=== PATIENT | female | born 1950 | race Caucasian/White ===

== ENCOUNTER 2024-12-28 04:03 | Inpatient (IN) | payer MEDICARE, BC ==
[~2024-12-28] VITALS: Ht 160 cm; Wt 78.0 kg
[2024-12-28 04:05] VITALS: BP 151/73; TEMP 97.7; O2SAT 96
[2024-12-28] MEDS ORDERED: MAGNESIUM HYDROXIDE 30 ML LIQUID UDC PO PRN (04:30)
[2024-12-28] MEDS ORDERED: LORAZEPAM 1 MG TABLET PO PRN (04:30)
[2024-12-28] MEDS ORDERED: TEMAZEPAM 7.5 MG CAPSULE PO PRN ×2 (04:30)
[2024-12-28] MEDS ORDERED: LISI20TA30 PO (06:00)
[2024-12-28] MEDS ORDERED: TRAZ-182 PO (06:00)
[2024-12-28] MEDS ORDERED: ESCI10TA PO (06:00)
[2024-12-28] MEDS ORDERED: ALBU5SOL7 IH (06:00)
[2024-12-28 08:24] VITALS: BP 121/58; TEMP 97.7; O2SAT 96
[2024-12-28] MEDS ORDERED: ALBUTEROL SULFATE 8 GM HFA.AER.AD IH PRN (14:30)
[2024-12-28] MEDS ORDERED: OLANZAPINE 10 MG VIAL IM ONE (15:00)
[2024-12-28 16:16] VITALS: BP 152/89; TEMP 97.7; O2SAT 96
[2024-12-28 20:11] VITALS: BP 163/81; TEMP 97.5; O2SAT 99
[2024-12-28] MEDS: AMOXICILLIN-CLAVUL 875-125MG TABLET PO SCH (20:19)
[2024-12-28] MEDS: LORAZEPAM 0.5 MG TABLET PO PRN (20:19)
[2024-12-29 08:08] VITALS: BP 123/78; TEMP 97.7; O2SAT 96
[2024-12-29 08:28] LABS: PLATELET COUNT (AUTO) 372 K/uL (179-408); RED BLOOD CELL COUNT(AUTO) 4.40 MIL/uL (3.63-4.92); RED CELL DISTRIBUTION WIDTH 17.3 % (12.3-17.7); WHITE BLOOD COUNT (AUTO) 7.2 K/uL (3.8-11.8)
[2024-12-29] MEDS ORDERED: LISINOPRIL 20 MG TABLET PO SCH (09:00)
[2024-12-29 16:18] VITALS: BP 164/77; TEMP 97.7; O2SAT 96
[2024-12-29] MEDS: DIVALPROEX 125 MG TABLET.DR PO SCH (16:21)
[2024-12-29 19:52] VITALS: BP 165/79; TEMP 98.1; O2SAT 98
[2024-12-29] MEDS: LISINOPRIL 20 MG TABLET PO SCH (20:49)
[2024-12-30 08:25] VITALS: BP 147/93; TEMP 97.7; O2SAT 96
[2024-12-30 16:23] VITALS: BP 143/77; TEMP 97.7; O2SAT 96
[2024-12-30 19:53] VITALS: BP 146/83; TEMP 98.4; O2SAT 97
[2024-12-31] MEDS: ACETAMINOPHEN 325 MG TABLET PO PRN (04:20)
[2024-12-31 09:09] VITALS: BP 156/80; TEMP 98; O2SAT 99
[2024-12-31] MEDS: OLANZAPINE 2.5 MG TABLET PO SCH (12:23)
[2024-12-31 16:20] VITALS: BP 167/85; TEMP 98.4; O2SAT 96
[2024-12-31] MEDS: OLANZAPINE 10 MG VIAL IM ONE (19:14)
[2024-12-31 19:58] VITALS: BP 183/103; TEMP 98.1; O2SAT 96
[2025-01-01] MEDS: MAG HYDROX/AL HYDROX/SIMETH 30 ML LIQUID UDC PO PRN (01:19)
[2025-01-01 08:22] VITALS: BP 145/60; TEMP 98; O2SAT 100
[2025-01-01] MEDS: MIRALAX 17 GM POWD.PACK PO SCH (09:00)
[2025-01-01 11:13] VITALS: BP 153/90; O2SAT 98
[2025-01-01 15:25] VITALS: BP 100/48; TEMP 98; O2SAT 98
[2025-01-01 19:42] VITALS: BP 152/93; TEMP 98.3; O2SAT 96
[2025-01-02 08:28] VITALS: BP 111/84; TEMP 98.2; O2SAT 96
[2025-01-02] MEDS ORDERED: OLANZAPINE 10 MG VIAL IM PRN (12:15)
[2025-01-02 15:11] VITALS: BP 145/86; TEMP 98.2; O2SAT 98
[2025-01-02 20:00] VITALS: BP 124/56; TEMP 97.5; O2SAT 97
[2025-01-03 09:00] VITALS: BP 148/96; TEMP 98; O2SAT 96
[2025-01-03 15:25] VITALS: BP 125/73; TEMP 98; O2SAT 99
[2025-01-03 20:00] VITALS: BP 144/96; TEMP 98; O2SAT 96
[2025-01-04 08:23] VITALS: BP 136/97; TEMP 98; O2SAT 96
[2025-01-04 16:38] VITALS: BP 163/89; TEMP 98; O2SAT 99
[2025-01-04 20:18] VITALS: BP 141/71; TEMP 98.1; O2SAT 94
[2025-01-04] MEDS: ALBUTEROL SULFATE 2.5 MG/3 ML NEBU NEB PRN (23:00)
[2025-01-05 08:33] VITALS: BP 145/87; TEMP 98; O2SAT 96
[2025-01-05 16:18] VITALS: BP 165/74; TEMP 98; O2SAT 99
== END 2025-01-05 18:15 | DRG 885 ==
LOC: GPS 04:03
PROVIDERS: ADMIT Psychiatry & Neurology Psychosomatic Medicine; ATTEND Nurse Practitioner Acute Care
DX: F31.9 Bipolar disorder, unspecified (principal); J15.69 Pneumonia due to other Gram-negative bacteria; F01.52 Vascular dementia, unspecified severity, with psychotic disturbance; F29 Unspecified psychosis not due to a substance or known physiological condition; E66.9 Obesity, unspecified; I10 Essential (primary) hypertension; J45.909 Unspecified asthma, uncomplicated; F01.53 Vascular dementia, unspecified severity, with mood disturbance; F01.54 Vascular dementia, unspecified severity, with anxiety; M15.9 Polyosteoarthritis, unspecified; Z68.30 Body mass index [BMI] 30.0-30.9, adult; R73.03 Prediabetes; Z79.51 Long term (current) use of inhaled steroids
CPT/HCPCS: 36415; 70450; 71045; 85025; 94664; J2358